=== PATIENT | female | born 1935 | race Caucasian/White ===

== ENCOUNTER 2019-04-21 19:40 | Inpatient (IN) | payer OTHER ==
[~2019-04-21] VITALS: Ht 170.2 cm; Wt 90.7 kg
[~2019-04-21 19:40] MED LIST: ADVIL PM1 TAB PO; ADVIL200 MG PO; ASPI-COR81 M3 PO; BACO TOP; COLACE100 MG PO; DAYQUIL COLD/FL1 SGL PO; FER300 PO; FOLIC ACID1 MG PO; GLU500 PO; HIBICLENS118 ML TOP; K10 PO; KLOR-CON20 MEQ PO; L20 PO; LEADER MELATONIN5 MG PO; LEVAQUIN250 MG PO; LISINOPRIL10 MG PO; LOPERAMIDE2 MG PO; MEVACOR40 MG PO; MOM PO; MULTIVITAMIN1 SGL PO; OCU OS; OYSTER SHELL C500 M3 PO; POLYETHYLENE PO; PRED FORTE1 ML OS; PRILOSEC40 MG PO; PROTONIX20 MG PO; RESTORIL15 MG PO; SYNTHROID0.175 MG PO; TRIPLE ANTIBIOT TOP; TYLENOL EXTRA500 M2 PO; VITC PO; [UNRECOGNIZED DRUG - OTHER] PO; [UNRECOGNIZED DRUG - OTHER] PO
[2019-04-21 19:57] VITALS: Ht 170.2 cm; Wt 90.7 kg
[2019-04-21 21:10] LABS: BASOPHIL % 0.3 % (0-2); PLATELET COUNT 355 x10^3mcL (130-400)
[2019-04-21 21:11] LABS: RED CELL DISTRIBUTION WIDTH 15.5 % (11.5-14.5)
[2019-04-21 21:24] LABS: CALCIUM 9.6 mg/dL (8.5-10.1); CARBON DIOXIDE 21.7 mmol/L (21-32); CHLORIDE SERUM 102 mmol/L (98-107); CREATININE SERUM 1.5 mg/dL (0.6-1.0); GLUCOSE SERUM 151 mg/dL (74-106); POTASSIUM SERUM 3.7 mmol/L (3.5-5.1); SODIUM SERUM 138 mmol/L (136-145)
[2019-04-21 21:28] LABS: ALBUMIN 4.1 g/dL (3.4-5.0); ALKALINE PHOSPHATASE 73 U/L (46-116); ALT/SGPT 25 U/L (14-59); AST/SGOT 17 U/L (15-37); BILIRUBIN TOTAL 0.3 mg/dL (0.20-1.00); TOTAL PROTEIN, SERUM 8.2 g/dL (6.4-8.2)
[2019-04-21 23:17] LABS: UA SPECIFIC GRAVITY 1.015 (1.005-1.035); microscopic required? YES; urine erythrocyte 1+ (NEGATIVE)
[2019-04-22 00:28] VITALS: BP 148/67
[2019-04-22 05:35] VITALS: BP 149/61
[2019-04-22 06:37] LABS: BASOPHIL % 0.3 % (0-2); PLATELET COUNT 299 x10^3mcL (130-400)
[2019-04-22 06:50] LABS: RED CELL DISTRIBUTION WIDTH 15.2 % (11.5-14.5)
[2019-04-22 06:53] LABS: ALKALINE PHOSPHATASE 56 U/L (46-116); ALT/SGPT 21 U/L (14-59); AST/SGOT 17 U/L (15-37); BILIRUBIN TOTAL 0.3 mg/dL (0.20-1.00); CALCIUM 7.9 mg/dL (8.5-10.1); CARBON DIOXIDE 26.4 mmol/L (21-32); CHLORIDE SERUM 105 mmol/L (98-107); CREATININE SERUM 1.3 mg/dL (0.6-1.0); GLUCOSE SERUM 128 mg/dL (74-106); POTASSIUM SERUM 3.5 mmol/L (3.5-5.1); SODIUM SERUM 141 mmol/L (136-145); TOTAL PROTEIN, SERUM 6.6 g/dL (6.4-8.2)
[2019-04-22 07:01] LABS: ALBUMIN 3.1 g/dL (3.4-5.0)
[2019-04-22 08:57] VITALS: BP 139/55
[2019-04-22 12:41] VITALS: BP 147/63
[2019-04-22 18:36] VITALS: BP 165/87
[2019-04-22 21:35] VITALS: BP 151/77
[2019-04-23 05:59] VITALS: BP 150/88
[2019-04-23 06:28] LABS: CALCIUM 8.2 mg/dL (8.5-10.1); CARBON DIOXIDE 28.2 mmol/L (21-32); CHLORIDE SERUM 97 mmol/L (98-107); GLUCOSE SERUM 199 mg/dL (74-106); MAGNESIUM 1.5 mg/dL (1.8-2.4); SODIUM SERUM 137 mmol/L (136-145)
[2019-04-23 07:01] LABS: BASOPHIL % 0.1 % (0-2); PLATELET COUNT 312 x10^3mcL (130-400); RED CELL DISTRIBUTION WIDTH 15.1 % (11.5-14.5)
[2019-04-23 08:45] VITALS: BP 159/83
[2019-04-23 12:42] VITALS: BP 182/85
[2019-04-23 18:05] VITALS: BP 103/73
[2019-04-24 04:59] VITALS: BP 150/77
[2019-04-24 09:50] VITALS: BP 185/73
[2019-04-24 12:10] VITALS: BP 165/78
[2019-04-24 18:04] VITALS: BP 158/65
[2019-04-24 19:10] VITALS: BP 147/63
[2019-04-24 20:20] VITALS: BP 175/79
[2019-04-25 05:27] VITALS: BP 157/76
[2019-04-25 08:30] VITALS: BP 180/73
[2019-04-25 13:15] VITALS: BP 173/75
[2019-04-25 15:57] VITALS: BP 142/68
[2019-04-25 20:19] VITALS: BP 156/69
[2019-04-26 05:35] VITALS: BP 157/76
[2019-04-26 06:26] LABS: PLATELET COUNT 365 x10^3mcL (130-400)
[2019-04-26 06:40] LABS: RED CELL DISTRIBUTION WIDTH 14.6 % (11.5-14.5)
[2019-04-26 07:17] LABS: CALCIUM 9.1 mg/dL (8.5-10.1); CHLORIDE SERUM 94 mmol/L (98-107); CREATININE SERUM 1.2 mg/dL (0.6-1.0); GLUCOSE SERUM 140 mg/dL (74-106); POTASSIUM SERUM 3.7 mmol/L (3.5-5.1); SODIUM SERUM 135 mmol/L (136-145)
[2019-04-26 08:27] VITALS: BP 138/75
[2019-04-26 08:37] LABS: BAND NEUTROPHIL 0 % (0-10); BASOPHIL 0 % (0-2); MONOCYTE 9 % (0-7); SEGMENTED NEUTROPHILS 72 % (37-75)
[2019-04-26 12:52] VITALS: BP 148/59
[2019-04-26 16:33] VITALS: BP 135/64
[2019-04-26 20:59] VITALS: BP 116/53
[2019-04-27 06:34] VITALS: BP 103/59
[2019-04-27 09:10] VITALS: BP 134/40
[2019-04-27 11:48] VITALS: BP 127/46
[2019-04-27] MEDS ORDERED: ECO81 PO (16:53)
[2019-04-27] MEDS ORDERED: ZES10 PO (16:53)
[2019-04-27] MEDS ORDERED: AMB5 PO (16:54)
[2019-04-27] MEDS ORDERED: PRI20 PO (16:54)
[2019-04-27] MEDS ORDERED: APAP/HYDROCODON1 T13 PO (16:54)
[2019-04-27] MEDS ORDERED: L20 PO (16:54)
[2019-04-27] MEDS ORDERED: GLU500 PO (16:55)
[2019-04-27] MEDS ORDERED: HUMULIN R100 U/1 M1 SC (16:55)
[2019-04-27 17:42] VITALS: BP 127/46
== END 2019-04-27 18:16 | DRG 470 ==
LOC: ED 19:40 → MU 23:33
PROVIDERS: Emergency Medicine; Internal Medicine; Neuromusculoskeletal Medicine, Sports Medicine; ADMIT Hospitalist
PROC: 0SRS0J9 Replacement of Left Hip Joint, Femoral Surface with Synthetic Substitute, Cemented, Open Approach (ICD-10-PCS; principal; 2019-04-26 08:30)
DX: S72.012A Unspecified intracapsular fracture of left femur, initial encounter for closed fracture (principal); N17.9 Acute kidney failure, unspecified; N39.0 Urinary tract infection, site not specified; E11.65 Type 2 diabetes mellitus with hyperglycemia; I13.10 Hypertensive heart and chronic kidney disease without heart failure, with stage 1 through stage 4 chronic kidney disease, or unspecified chronic kidney disease; E11.22 Type 2 diabetes mellitus with diabetic chronic kidney disease; N18.9 Chronic kidney disease, unspecified; I25.10 Atherosclerotic heart disease of native coronary artery without angina pectoris; E78.5 Hyperlipidemia, unspecified; G51.0 Bell's palsy; Z91.81 History of falling; Z79.84 Long term (current) use of oral hypoglycemic drugs; Z79.02 Long term (current) use of antithrombotics/antiplatelets; Z95.5 Presence of coronary angioplasty implant and graft; Z68.27 Body mass index [BMI] 27.0-27.9, adult; W01.190A Fall on same level from slipping, tripping and stumbling with subsequent striking against furniture, initial encounter; Y92.003 Bedroom of unspecified non-institutional (private) residence as the place of occurrence of the external cause
CPT/HCPCS: 82962; 97012-GP; 97110-GP; G0378; J0360; J0690; J0696; J1170; J1644; J1815; J2270; J2405; J3010; J3490; J7040; Q0092